=== PATIENT | female | born 1980 | race Caucasian/White ===

== ENCOUNTER 2023-06-20 11:03 | Emergency (ER) | payer OTHER, SELFPAY ==
[2023-06-20] VITALS (23 sets, daily range): BP systolic 137–162; BP diastolic 85–108; PULSE 72–97; RESP 14–27; TEMP 36.7; O2SAT 96–100; BMI 41.6
--- NOTE | 2023-06-20 11:13 | ECG_ITS ---
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
[2023-06-20] MEDS: 0.9 % SODIUM CHLORIDE 1,000 ML 999 ML IV (12:03)
[2023-06-20 12:13] LABS: Basophils Absolute Auto 0.1 10^3/uL (0.0-0.1); Basophils Percent Auto 0.6 % (0.2-2.0); Eosinophils Absolute Auto 0.1 10^3/uL (0.0-0.7); Eosinophils Percent Auto 0.6 % (0.9-7.0); Hematocrit 45.9 % (36.0-48.0); Hemoglobin 15.3 g/dL (12.0-16.0); Immature Granulocytes Abs Auto 0.03 10^3/uL (0.00-0.03); Immature Granulocytes Pct Auto 0.3 % (0.0-0.5); Lymphocytes Absolute Auto 2.7 10^3/uL (1.2-3.8); Lymphocytes Percent Auto 28.7 % (20.5-60.0); Mean Corpuscular HGB Conc 33.3 g/dL (29.9-35.2); Mean Corpuscular Hemoglobin 30.4 pg (26.7-34.0); Mean Corpuscular Volume 91.3 fL (81.0-99.0); Mean Platelet Volume 9.6 fL (9.5-13.5); Monocytes Absolute Auto 0.8 10^3/uL (0.3-0.8); Monocytes Percent Auto 8.4 % (1.7-12.0); Neutrophils Absolute Auto 5.8 10^3/uL (1.4-6.5); Neutrophils Percent Auto 61.4 % (43.0-75.0); Platelet Count 353 10^3/uL (150-450); Red Blood Count 5.03 10^6/uL (4.20-5.40); Red Cell Distribution Width 12.5 % (11.0-15.0); White Blood Count 9.4 10^3/uL (4.0-11.0)
[2023-06-20 12:37] LABS: Alanine Aminotransferase 37 U/L (14-59); Albumin Level 4.2 g/dL (3.4-5.0); Alkaline Phosphatase 80 U/L (46-116); Anion Gap 13.7; Aspartate Amino Transferase 14 U/L (15-37); BUN Creatinine Ratio 20.5; Bilirubin Total 0.3 mg/dL (0.2-1.0); Calcium 9.7 mg/dL (8.5-10.1); Carbon Dioxide 23.5 mmol/L (21.0-32.0); Chloride 102 mmol/L (98-107); Estimated GFR (African America >60 (>=60); Estimated GFR (Non-African Ame >60 (>=60); Globulin 4.1 g/dL; Glucose 92 mg/dL (74-106); Potassium 4.2 mmol/L (3.5-5.1); Sodium 135 mmol/L (136-145); Total Protein 8.3 g/dL (6.4-8.2); Troponin I High Sensitivity <4.0 pg/mL (4.0-51.3)
--- NOTE | 2023-06-20 13:04 | ED_ITS ---
Documented by User: SOFIA Barreto 06/20/23 14:42 HPI - General Adult General Chief complaint: Dizziness Stated complaint: DIZZINESS, BLURRED VISION Time Seen by Provider: 06/20/23 12:59 Source: patient Mode of arrival: walk-in Limitations: no limitations History of Present Illness HPI narrative: patient is a 42-year-old female presents to the emergency department for four day history of headache, dizziness and nausea. She states last she had a two day significant headache over the frontal scalp associated with dizziness that she describes as feeling off balance and spinning. She states she has had blurred vision and difficulty focusing. She has had no loss of vision, peripheral paresthesias. She denies head injury. She does not get frequent headaches and has never been diagnosed with migraines but states when she does get a headache it is not similar to what she has had over the last several days. She has had no fevers, congestion, other upper respiratory symptoms. She is not concerned for . She took [id number] migraine medication without significant improvement. She states the nausea and headache are slightly better today, she is not able to be seen by her doctor. Related Data Previous Rx's Medication Instructions Recorded ketorolac 10 mg tablet 10 mg PO TID PRN pain #10 tabs 06/20/23 meclizine 25 mg chewable tablet 25 mg PO QID PRN dizziness #12 tabs 06/20/23 (Antivert) ondansetron 4 mg disintegrating 4 mg PO Q6H PRN nausea and 06/20/23 tablet vomiting #12 tabs Allergies Allergy/AdvReac Type Severity Reaction Status Date / Time Penicillins AdvReac Intermediate Verified 06/20/23 11:10 Review of Systems ROS Constitutional Denies: fever or chills Eyes Reports: change in vision and blurry vision Ears, nose, mouth, and throat Denies: throat pain Cardiovascular Denies: chest pain Respiratory Denies: shortness of breath or cough Gastrointestinal Reports: nausea Musculoskeletal Denies: back pain Integumentary/Breast Denies: rash Neurological Reports: headache; Denies: numbness in extremities Hematologic/Lymphatic Denies: easy bruising Exam Narrative Exam Narrative: Gen.: Awake, alert, in no distress Head: Normocephalic, atraumatic ENT: Moist mucous membranes; bilateral tympanic membranes clear, no photophobia Respiratory: No respiratory distress, lungs clear bilaterally Cardio: Regular rate and rhythm Extremities: Moves extremities equally, no injuries noted Psych: Normal mood and affect Neuro: No focal neuro deficit Skin: Warm, dry, intact Constitutional Vital Signs, click to edit/add: Last Vital Signs Temp 98.1 F 06/20/23 11:09 Pulse 79 06/20/23 14:40 Resp 24 06/20/23 14:40 BP 140/85 06/20/23 14:31 Pulse Ox 96 06/20/23 13:30 O2 Del Method Room Air 06/20/23 11:09 Course Vital Signs Vital signs: Vital Signs Temperature 98.1 F 06/20/23 11:09 Pulse Rate 87 06/20/23 11:09 Respiratory Rate 18 06/20/23 11:09 Blood Pressure 162/108 H 06/20/23 11:09 Pulse Oximetry 100 06/20/23 11:09 Oxygen Delivery Method Room Air 06/20/23 11:09 Temperature 98.1 F 06/20/23 11:09 Pulse Rate 79 06/20/23 14:40 Respiratory Rate 24 06/20/23 14:40 Blood Pressure 140/85 06/20/23 14:31 Pulse Oximetry 96 06/20/23 13:30 Oxygen Delivery Method Room Air 06/20/23 11:09 Medical Decision Making MDM Narrative Medical decision making narrative: patient was treated with IV fluids, Reglan, Benadryl, Solu-Medrol. She was ambulatory in the emergency department. Her head CT and lab studies do not show any obvious abnormalities. Medical Records Medical records reviewed: Yes I reviewed the patient's medical records Lab Data Lab results reviewed: Yes I reviewed the patient's lab results Labs: Lab Results 06/20/23 06/20/23 Range/Units 12:00 13:45 WBC 9.4 (4.0-11.0) 10^3/uL RBC 5.03 (4.20-5.40) 10^6/uL Hgb 15.3 (12.0-16.0) g/dL Hct 45.9 (36.0-48.0) % MCV 91.3 (81.0-99.0) fL MCH 30.4 (26.7-34.0) pg MCHC 33.3 (29.9-35.2) g/dL RDW 12.5 (11.0-15.0) % Plt Count 353 (150-450) 10^3/uL MPV 9.6 (9.5-13.5) fL Neut % (Auto) 61.4 (43.0-75.0) % Lymph % (Auto) 28.7 (20.5-60.0) % [place] % (Auto) 8.4 (1.7-12.0) % Eos % (Auto) 0.6 L (0.9-7.0) % Baso % (Auto) 0.6 (0.2-2.0) % Neut # (Auto) 5.8 (1.4-6.5) 10^3/uL Lymph # (Auto) 2.7 (1.2-3.8) 10^3/uL [place] # (Auto) 0.8 (0.3-0.8) 10^3/uL Eos # (Auto) 0.1 (0.0-0.7) 10^3/uL Baso # (Auto) 0.1 (0.0-0.1) 10^3/uL Abs Immat Gran (auto) 0.03 (0.00-0.03) 10^3/uL Imm/Tot Granulo (auto) 0.3 (0.0-0.5) % ESR 25 H (<=20) mm/hr Sodium 135 L (136-145) mmol/L Potassium 4.2 (3.5-5.1) mmol/L Chloride 102 (98-107) mmol/L Carbon Dioxide 23.5 (21.0-32.0) mmol/L Anion Gap 13.7 BUN 15.0 (7.0-18.0) mg/dL Creatinine 0.73 (0.55-1.02) mg/dL Est GFR ( Amer) >60 (>=60) Est GFR (Non-Af Amer) >60 (>=60) BUN/Creatinine Ratio 20.5 Glucose 92 (74-106) mg/dL Calcium 9.7 (8.5-10.1) mg/dL Total Bilirubin 0.3 (0.2-1.0) mg/dL AST 14 L (15-37) U/L ALT 37 (14-59) U/L Alkaline Phosphatase 80 (46-116) U/L Troponin I High Sens <4.0 L (4.0-51.3) pg/mL C-Reactive Protein <0.2 (<=1.0) mg/dL Total Protein 8.3 H (6.4-8.2) g/dL Albumin 4.2 (3.4-5.0) g/dL Globulin 4.1 g/dL Albumin/Globulin Ratio 1.0 Urine Opiates Screen Negative (NEGATIVE) Ur Buprenorphine Scrn Negative (NEGATIVE) Ur Oxycodone Screen Negative (NEGATIVE) Urine Methadone Screen Negative (NEGATIVE) Ur Propoxyphene Screen Negative (NEGATIVE) Ur Barbiturates Screen Negative (NEGATIVE) U Tricyclic Antidepress Negative (NEGATIVE) Ur Phencyclidine Scrn Negative (NEGATIVE) Ur Amphetamines Screen Negative (NEGATIVE) U Methamphetamines Scrn Negative (NEGATIVE) U Benzodiazepines Scrn Negative (NEGATIVE) Urine Cocaine Screen Negative (NEGATIVE) U Cannabinoids Screen Negative (NEGATIVE) Imaging Data CT scan - head: Attestation: I have reviewed the pertinent imaging results. Discharge Plan Discharge Chief Complaint: Dizziness Clinical Impression: Dizziness, Headache Patient Disposition: Home, Self-Care Time of Disposition Decision: 14:41 Condition: Good Prescriptions / Home Meds: New ketorolac 10 mg tablet 10 mg PO TID PRN (Reason: pain) Qty: 10 0RF ondansetron 4 mg tablet,disintegrating 4 mg PO Q6H PRN (Reason: nausea and vomiting) Qty: 12 0RF meclizine [Antivert] 25 mg tablet,chewable 25 mg PO QID PRN (Reason: dizziness) Qty: 12 0RF Instructions: Acute Headache (ED), Dizziness (ED) Stand Alone Forms: Portal Instructions Referrals: MILTON WHATLEY [Primary Care Provider] - 1 week Discharge Date/Time: 06/20/23 15:00 Documented by User: Matheus Medel MD 06/20/23 19:34 HPI - General Adult General Chief complaint: Dizziness Stated complaint: DIZZINESS, BLURRED VISION Time Seen by Provider: 06/20/23 12:59 Related Data Previous Rx's Medication Instructions Recorded ketorolac 10 mg tablet 10 mg PO TID PRN pain #10 tabs 06/20/23 meclizine 25 mg chewable tablet 25 mg PO QID PRN dizziness #12 tabs 06/20/23 (Antivert) ondansetron 4 mg disintegrating 4 mg PO Q6H PRN nausea and 06/20/23 tablet vomiting #12 tabs Allergies Allergy/AdvReac Type Severity Reaction Status Date / Time Penicillins AdvReac Intermediate Verified 06/20/23 11:10 Exam Constitutional Vital Signs, click to edit/add: Last Vital Signs Temp 98.1 F 06/20/23 11:09 Pulse 79 06/20/23 14:40 Resp 24 06/20/23 14:40 BP 140/85 06/20/23 14:31 Pulse Ox 96 06/20/23 13:30 O2 Del Method Room Air 06/20/23 11:09 Course Vital Signs Vital signs: Vital Signs Temperature 98.1 F 06/20/23 11:09 Pulse Rate 87 06/20/23 11:09 Respiratory Rate 18 06/20/23 11:09 Blood Pressure 162/108 H 06/20/23 11:09 Pulse Oximetry 100 06/20/23 11:09 Oxygen Delivery Method Room Air 06/20/23 11:09 Temperature 98.1 F 06/20/23 11:09 Pulse Rate 79 06/20/23 14:40 Respiratory Rate 24 06/20/23 14:40 Blood Pressure 140/85 06/20/23 14:31 Pulse Oximetry 96 06/20/23 13:30 Oxygen Delivery Method Room Air 06/20/23 11:09 Medical Decision Making MDM Narrative Medical decision making narrative: patient was treated with IV fluids, Reglan, Benadryl, Solu-Medrol. She was ambulatory in the emergency department. Her head CT and lab studies do not show any obvious abnormalities. I, Dr Medel, have reviewed the above progress note and course of action in the ER; agree with the above. I have personally seen and evaluated this patient, gone over history and physical, and discussed disposition and treatment plan with the patient. Lab Data Labs: Lab Results 06/20/23 06/20/23 Range/Units 12:00 13:45 WBC 9.4 (4.0-11.0) 10^3/uL RBC 5.03 (4.20-5.40) 10^6/uL Hgb 15.3 (12.0-16.0) g/dL Hct 45.9 (36.0-48.0) % MCV 91.3 (81.0-99.0) fL MCH 30.4 (26.7-34.0) pg MCHC 33.3 (29.9-35.2) g/dL RDW 12.5 (11.0-15.0) % Plt Count 353 (150-450) 10^3/uL MPV 9.6 (9.5-13.5) fL Neut % (Auto) 61.4 (43.0-75.0) % Lymph % (Auto) 28.7 (20.5-60.0) % [place] % (Auto) 8.4 (1.7-12.0) % Eos % (Auto) 0.6 L (0.9-7.0) % Baso % (Auto) 0.6 (0.2-2.0) % Neut # (Auto) 5.8 (1.4-6.5) 10^3/uL Lymph # (Auto) 2.7 (1.2-3.8) 10^3/uL [place] # (Auto) 0.8 (0.3-0.8) 10^3/uL Eos # (Auto) 0.1 (0.0-0.7) 10^3/uL Baso # (Auto) 0.1 (0.0-0.1) 10^3/uL Abs Immat Gran (auto) 0.03 (0.00-0.03) 10^3/uL Imm/Tot Granulo (auto) 0.3 (0.0-0.5) % ESR 25 H (<=20) mm/hr Sodium 135 L (136-145) mmol/L Potassium 4.2 (3.5-5.1) mmol/L Chloride 102 (98-107) mmol/L Carbon Dioxide 23.5 (21.0-32.0) mmol/L Anion Gap 13.7 BUN 15.0 (7.0-18.0) mg/dL Creatinine 0.73 (0.55-1.02) mg/dL Est GFR ( Amer) >60 (>=60) Est GFR (Non-Af Amer) >60 (>=60) BUN/Creatinine Ratio 20.5 Glucose 92 (74-106) mg/dL Calcium 9.7 (8.5-10.1) mg/dL Total Bilirubin 0.3 (0.2-1.0) mg/dL AST 14 L (15-37) U/L ALT 37 (14-59) U/L Alkaline Phosphatase 80 (46-116) U/L Troponin I High Sens <4.0 L (4.0-51.3) pg/mL C-Reactive Protein <0.2 (<=1.0) mg/dL Total Protein 8.3 H (6.4-8.2) g/dL Albumin 4.2 (3.4-5.0) g/dL Globulin 4.1 g/dL Albumin/Globulin Ratio 1.0 Urine Opiates Screen Negative (NEGATIVE) Ur Buprenorphine Scrn Negative (NEGATIVE) Ur Oxycodone Screen Negative (NEGATIVE) Urine Methadone Screen Negative (NEGATIVE) Ur Propoxyphene Screen Negative (NEGATIVE) Ur Barbiturates Screen Negative (NEGATIVE) U Tricyclic Antidepress Negative (NEGATIVE) Ur Phencyclidine Scrn Negative (NEGATIVE) Ur Amphetamines Screen Negative (NEGATIVE) U Methamphetamines Scrn Negative (NEGATIVE) U Benzodiazepines Scrn Negative (NEGATIVE) Urine Cocaine Screen Negative (NEGATIVE) U Cannabinoids Screen Negative (NEGATIVE) Discharge Plan Discharge Chief Complaint: Dizziness Clinical Impression: Dizziness, Headache Patient Disposition: Home, Self-Care Time of Disposition Decision: 14:41 Condition: Good Prescriptions / Home Meds: New ketorolac 10 mg tablet 10 mg PO TID PRN (Reason: pain) Qty: 10 0RF ondansetron 4 mg tablet,disintegrating 4 mg PO Q6H PRN (Reason: nausea and vomiting) Qty: 12 0RF meclizine [Antivert] 25 mg tablet,chewable 25 mg PO QID PRN (Reason: dizziness) Qty: 12 0RF Instructions: Acute Headache (ED), Dizziness (ED) Stand Alone Forms: Portal Instructions Referrals: MILTON WHATLEY [Primary Care Provider] - 1 week Discharge Date/Time: 06/20/23 15:00
[2023-06-20] MEDS: METOCLOPRAMIDE HCL 10 MG/2 ML VIAL INJ (13:17)
[2023-06-20] MEDS: METHYLPREDNISOLONE SOD SUCC PF 125 MG/2 ML VIAL IVP (13:17)
[2023-06-20] MEDS: DIPHENHYDRAMINE HCL 50 MG/ML (1ML) VIAL 25 MG IV (13:17)
[2023-06-20 13:32] LABS: C Reactive Protein <0.2 mg/dL (<=1.0)
[2023-06-20 13:48] LABS: Erythrocyte Sedimentation Rate 25 mm/hr (<=20)
--- NOTE | 2023-06-20 13:57 | CT_ITS ---
The [address] [address] Patient Name: SPENCER LIM MRN: [id number] date: 1980 Sex: F Assigned Patient Location: ER Current Patient Location: ER Accession/Order Number: [id number] Exam Date: 06/20/2023 13:55 Report Date: 06/20/2023 14:14 At the request of: CHERELLE LAUREANO Procedure: CT head/brain wo con CT head/brain wo con, 06/20/2023 1:55 PM EDT INDICATION: Headache, dizziness COMPARISON: There is no appropriate prior study for comparison. TECHNIQUE: Axial CT images of the brain from skull base to vertex, including portions of the face and sinuses, were obtained without contrast . Multiplanar reformatted images were generated and reviewed as needed. Dose reduction techniques were achieved by using automated exposure control and/or adjustment of mA and/or kV according to patient size and/or use of iterative reconstruction technique. FINDINGS: The cerebral sulci as well as ventricular system are appropriate for age. There is no intracranial mass, mass effect, midline shift, intra or extra-axial fluid collection or hemorrhage. The visualized portions of orbits, mastoid air cells as well as paranasal sinuses are unremarkable. There is no suspicious osteolytic or osteoblastic lesion. CT/CT head/brain wo con IMPRESSION: No acute intracranial process is noted. Electronically authenticated by: SHAYLA SUN Date: 06/20/2023 14:14
[2023-06-20 14:12] LABS: Amphetamine Screen Urine NEGATIVE (NEGATIVE); Benzodiazepines Screen Urine NEGATIVE (NEGATIVE); Cannabinoid Screen Urine NEGATIVE (NEGATIVE); Cocaine Screen Urine NEGATIVE (NEGATIVE); Methadone Screen Urine NEGATIVE (NEGATIVE); Methamphetamines Screen Urine NEGATIVE (NEGATIVE); Opiate Screen Urine NEGATIVE (NEGATIVE); Phencyclidine Screen Urine NEGATIVE (NEGATIVE); Tricyclic Antidepressant Urine NEGATIVE (NEGATIVE)
[2023-06-20 14:13] LABS: Barbiturates Screen Urine NEGATIVE (NEGATIVE); Buprenorphine Screen Urine NEGATIVE (NEGATIVE); Oxycodone Screen Urine NEGATIVE (NEGATIVE)
== END 2023-06-20 15:00 | disposition home or self-care (01) ==
PROVIDERS: Physician Assistant; Emergency Provider Emergency Medicine; PCP Family Medicine
DX: R51.9 Headache, unspecified (principal); R42 Dizziness and giddiness
CPT/HCPCS: 36415; 70450; 80053; 80307; 84484; 85025; 85652; 86140; 93005; 96372; 96374; 96375; 99285; J2930

== ENCOUNTER 2023-12-26 20:06 | Outpatient (REF) | payer OTHER, SELFPAY ==
[2023-12-30 13:11] LABS: Age Gdln ACOG Testing Note (.); HPV Aptima Negative (Negative); IGP, Aptima HPV, rfx 16/18,45 Note (.)
== END 2023-12-26 20:07 | disposition home or self-care (01) ==
LOC: LAB 20:06
PROVIDERS: PCP Family Medicine; Visit Provider Obstetrics & Gynecology
DX: Z01.419 Encounter for gynecological examination (general) (routine) without abnormal findings (principal)
CPT/HCPCS: 87624; G0145

== ENCOUNTER 2024-01-23 12:03 | Outpatient (REF) | payer OTHER, SELFPAY ==
--- OUTSIDE RECORDS SUMMARY | 2024-01-26 12:14 | XMS_ITS | CCD ---
Author Organization [facility] Care Team Providers [facility] Manager Name Role Phone Arabella Duong Primary Care Provider RAHUL CAIN Referring Unavailable ARABELLA DUONG Primary Care Unavailable ARABELLA DUONG Primary Care Unavailable JESSICA ALFARO Attending Unavailable BECKI SHIELDS Attending Unavailable MD Arabella Duong Primary Care Provider Becki Shields Attending Provider [phone] Arabella Duong Primary Care Unavailable Becki Shields Attending Unavailable Becki Shields Admitting Unavailable Allergies Allergy Classification Reported Allergen(s) Allergy Type Date of Onset Reaction(s) Facility (1 source) Penicillins Propensity to adverse reactions to drug 01-31-2020 [place], [place] Medications Current Medications Medication Drug Class(es) Dates Sig (Normalized) Sig (Original) benzonatate 100 mg oral capsule (1 source) Non-narcotic Antitussive take 1 capsule by mouth three times daily as needed for cough benzonatate (TESSALON) 100 MG capsule Take 100 mg by mouth 3 times daily as needed for Cough 0 Active ciprofloxacin 3 mg/ml / dexamethasone 1 mg/ml otic suspension (1 source) Corticosteroid, Quinolone Antimicrobial Start: 01-31-2020 End: 02-07-2020 ciprofloxacin-de xamethasone (CIPRODEX) 0.3-0.1 % otic suspension Indications: Recurrent acute suppurative otitis media of right ear with spontaneous rupture of tympanic membrane Place 4 drops into both ears 2 times daily for 7 days 1 Bottle 0 01/31/2020 02/07/2020 Active clindamycin 300 mg oral capsule (1 source) Lincosamide Antibacterial Start: 01-31-2020 End: 02-07-2020 take 1 capsule by mouth three times daily clindamycin (CLEOCIN) 300 MG capsule Indications: Recurrent acute suppurative otitis media of right ear with spontaneous rupture of tympanic membrane , Recurrent acute serous otitis media of left ear Take 1 capsule by mouth 3 times daily for 7 days 21 capsule 0 01/31/2020 02/07/2020 Active Ethinyl Estradiol / Levonorgestrel (1 source) Progestin, Estrogen, Progestin-containing Intrauterine Device Levonorg-Eth Estrad Triphasic (ENPRESSE-28) 50-30/75-40/ 125-30 MCG TABS Take by mouth 0 Active famotidine 10 mg oral tablet (1 source) Histamine-2 Receptor Antagonist take 1 tablet by mouth twice daily famotidine (PEPCID) 10 MG tablet Take 10 mg by mouth 2 times daily 0 Active fluticasone propionate 0.05 mg/actuat metered dose nasal spray (1 source) Corticosteroid take 1 spray(s) nasal route once daily fluticasone (FLONASE) 50 MCG/ACT nasal spray 1 spray by Each Nostril route daily 0 Active guaiFENesin (1 source) guaiFENesin (MUCUS RELIEF ADULT PO) Take by mouth 0 Active Problems Problem Classification Problem Date Documented Da te Episodic/Chronic Malaise and fatigue (1 source) Fatigue; Translations: [Fatigue, unspecified type] Episodic Other ear and sense organ disorders (1 source) Decreased hearing ; Translations: [Decreased hearing of both ears] Chronic Otitis media and related conditions (1 source) Recurrent acute suppurative otitis media with spontaneous rupture of ear drum; Translations: [Recurrent acute suppurative otitis media of right ear with spontaneous rupture of tympanic membrane] Episodic Results Test Name Value Interpretation Reference Range Facility [facility] 01-23-2024 L Specimen: [id number] Received: 01/24/24 Status: DARIA Carlton Num: [id number] Spec Type: Surgical Subm Dr: Becki Shields Tissues: A Endometrium - Biopsy (ENDOM BX) Procedures: HE/2, Gross/Micro L4 Age/ Patient Sex Location Account Attending Physician Alia Parham 43/F LABELL [id number] Becki Shields SPEC NUM: [id number] RECD: 01/24/24 STATUS: DARIA CARLTON NUM: [id number] ALISHA: 01/23/24- SUBM DR: Becki Shields ENTERED: 01/24/24 [facility] DR: Leighton Strong SPEC TYPE: Surgical DEPT: JANNA ADAMS ENTERED BY: [id number] RECV BY: [id number] ORDERED: HE/2, Gross/Micro L4 ORDERED: HE/2, Gross/Micro L4 Pathological Diagnosis Endometrium, biopsy: Fragments of benign endometrium with changes consistent with exogenous hormonal therapy. Gross Description The specimen is received in formalin, labeled with the patient's name and EM BX , consisting of an aggregate of hemorrhagic material and mucus altogether measuring 2.5 x 2.1 x 0.3 cm, entirely submitted in A1. TW Clinical history: GERD rule out H. pylori CPT Codes 67994 Specimen: [id number] Received: 01/24/24 Status: DARIA Carlton Num: [id number] Spec Type: Surgical Subm Dr: Becki Shields Tissues: A Endometrium - Biopsy (ENDOM BX) Procedures: HE/2, Gross/Micro L4 Patient: Alia Parham [id number] (Continued) Signed (signature on file) Hyacinth Garcia MD 01/25/24 1356 Normal [facility] Consent Formson 08-09-2023 Consent Forms [id number] #1.00OTGTIFF Normal [facility] CMP Standardon 08-03-2023 eGFR Non AA >60 Invalid Interpretation Code [facility] Comment on above: Performed By: #### 1 [id number], 5952074, [id number], 6213095, 7077099, 5545444, 8171874 #### [facility] (DEFAULT) [address] [place] [address] eGFR AA >60 Invalid Interpretation Code [facility] Comment on above: Performed By: #### 1 [id number], 9987697, [id number], 9440085, 4554078, 8231785, 8371559 #### [facility] (DEFAULT) [address] [place] [address] Albumin [Mass/Vol] 4.2 g/dL Normal 3.5-5.0 [facility] Comment on above: Performed By: #### 1 [id number], 4885791, [id number], 6191144, 0956753, 2186559, 0606222 #### [facility] (DEFAULT) [address] [place] [address] Alk Phos 70 IU/L Normal 32-91 [facility] Comment on above: Performed By: #### 1 [id number], 4604822, [id number], 4743913, 4905293, 2926452, 1046715 #### [facility] (DEFAULT) [address] [place] [address] 99117 ALT [Catalytic activity/Vol] 20.0 U/L Normal 14.0-54.0 [facility] Comment on above: Performed By: #### 1 [id number], 6733752, 7370172806, 2654324, 5163619, 0143526, 8537712 #### [facility] (DEFAULT) [address] [place] [address] 21165 AST [Catalytic activity/Vol] 18 U/L Normal 15-41 [facility] Comment on above: Performed By: #### 1 [id number], 8448673, 1154602743, 3503245, 0040517, 5882345, 0291399 #### [facility] (DEFAULT) [address] [place] [address] 51332 Bili Total 0.5 mg/dL Normal 0.3-1.2 [facility] Comment on above: Performed By: #### 1 [id number], 6113241, 3563374336, 0390624, 0134728, 9507186, 3986456 #### [facility] (DEFAULT) [address] [place] [address] 54348 Calcium [Mass/Vol] 8.8 mg/dL Low 8.9-10.3 [facility] Comment on above: Performed By: #### 1 [id number], 2541183, 5037857543, 0421383, 4007664, 0947876, 1500345 #### [facility] (DEFAULT) [address] [place] [address] 30478 Chloride [Moles/Vol] 104 mmol/L Normal 101-111 [facility] Comment on above: Performed By: #### 1 [id number], 4314332, 0858448623, 2552150, 6542519, 2537990, 5231156 #### [facility] (DEFAULT) [address] [place] [address] 98228 CO2 [Moles/Vol] 26 mmol/L Normal 21-32 [facility] Comment on above: Performed By: #### 1 [id number], 6812443, 2191373756, 7567051, 3805032, 9160883, 2132265 #### [facility] (DEFAULT) [address] [place] [address] 17861 Creatinine [Mass/Vol] 0.69 mg/dL Normal 0.60-1.30 [facility] Comment on above: Performed By: #### 1 [id number], 1093841, 9258056671, 5782691, 8616398, 0966028, 5685005 #### [facility] (DEFAULT) [address] [place] [address] 70838 Glucose [Mass/Vol] 90.0 mg/dL Normal 74.0-118.0 [facility] Comment on above: Performed By: #### 1 [id number], 2080864, 7026340611, 2886324, 1359403, 5751582, 7276683 #### [facility] (DEFAULT) [address] [place] [address] 64951 Potassium [Moles/Vol] 3.6 mmol/L Normal 3.6-5.1 [facility] Comment on above: Performed By: #### 1 668908475, 6594659, 8526892016, 5058831, 5482164, 4964192, 1302265 #### [facility] (DEFAULT) [address] [place] [address] 19053 Protein [Mass/Vol] 7.7 g/dL Normal 6.5-8.1 [facility] Comment on above: Performed By: #### 1 [id number], 8048743, 2483738721, 3649926, 1627479, 9885159, 6722737 #### [facility] (DEFAULT) [address] [place] [address] 85954 Sodium [Moles/Vol] 137.0 mmol/L Normal 136.0-144.0 [facility] Comment on above: Performed By: #### 1 [id number], 9338858, 3534370899, 9628632, 1738313, 5126812, 5445475 #### [facility] (DEFAULT) [address] [place] [address] 08486 Urea nitrogen [Mass/Vol] 15 mg/dL Normal 8-26 [facility] Comment on above: Performed By: #### 1 680545129, 5091890, 1649554864, 3053085, 8225214, 2141904, 4513544 #### [facility] (DEFAULT) [address] [place] [address] 11148 Albumin/Globulin [Mass ratio] 1.2 {ratio} Low 1.4-2.6 [facility] Comment on above: Performed By: #### 1 [id number], 4311262, 6985756116, 2754759, 8277472, 2297625, 7739894 #### [facility] (DEFAULT) [address] [place] [address] 92992 Anion gap [Moles/Vol] 10.6 mmol/L Normal 5.0-19.0 [facility] Comment on above: Performed By: #### 1 255367234, 3136078, 9222096388, 0726715, 1672471, 7147583, 3722439 #### [facility] (DEFAULT) [address] [place] [address] 57141 Globulin (S) [Mass/Vol] 3.5 g/dL Normal 1.5-4.3 [facility] Comment on above: Performed By: #### 1 957457933, 8567591, 5826228329, 1428756, 1384113, 1191716, 5439800 #### [facility] (DEFAULT) [address] [place] [address] 51940 Osmolality 274 mOsm/L Invalid Interpretation Code [facility] Comment on above: Performed By: #### 1 407452740, 2928732, 7840486610, 2551280, 1769702, 7396170, 4946046 #### [facility] (DEFAULT) [address] [place] [address] 44668 Urea nitrogen/Creatinin e [Mass ratio] 21.7 mg/mg High 4.6-16.2 [facility] Comment on above: Performed By: #### 1 280871549, 9435299, 3850393216, 9779454, 1558675, 0595123, 3471594 #### [facility] (DEFAULT) [address] [place] [address] 97931 GGTon 08-03-2023 Gamma glutamyl transferase [Catalytic activity/Vol] 16.0 U/L Normal 7.0-50.0 [facility] Comment on above: Performed By: #### 1 305620496, 3670885, 1959466682, 9421752, 3575983, 0945925, 6865850 #### [facility] (DEFAULT) [address] [place] [address] 97863 Iron Levelon 08-03-2023 Iron [Mass/Vol] 101.0 ug/dL Normal 28.0-170.0 [facility] Comment on above: Performed By: #### 1 551631453, 0433312, 8039244930, 2172820, 8692331, 7815686, 9394045 #### [facility] (DEFAULT) [address] [place] [address] 79750 LDHon 08-03-2023 LDH 152.0 IU/L Normal 98.0-192.0 [facility] Comment on above: Performed By: #### 1 761748884, 6640398, 5899913534, 3982263, 4444552, 8048418, 7280398 #### [facility] (DEFAULT) [address] [place] [address] 64742 Lipid Panel Standardon 08-03 Cholesterol [Mass/Vol] 195.0 mg/dL Normal 66.0-200.0 [facility] Comment on above: Performed By: #### 1 [id number], 8846180, 6363858507, 7453811, 6330695, 5756721, 2359150 #### [facility] (DEFAULT) [address] [place] [address] 58442 Cholesterol in HDL [Mass/Vol] 40 mg/dL Normal 40-71 [facility] Comment on above: Performed By: #### 1 299053953, 4426612, 8296572213, 4270313, 3064348, 1572872, 6478444 #### [facility] (DEFAULT) [address] [place] [address] 49494 Triglyceride [Mass/Vol] 70.0 mg/dL Normal 0.0-150.0 [facility] Comment on above: Performed By: #### 1 938156025, 3263494, 9236889664, 1402982, 7939396, 1537664, 6249787 #### [facility] (DEFAULT) [address] [place] [address] 64451 Cholesterol in LDL [Mass/Vol] 141 mg/dL High 1-100 [facility] Comment on above: Performed By: #### 1 [id number], 8093310, 4499288640, 6587704, 2094391, 0417657, 4106596 #### [facility] (DEFAULT) [address] [place] [address] 10165 Cholesterol.total/ Cholesterol in HDL [Mass ratio] 4.8 {ratio} High 0.0-4.5 [facility] Comment on above: Performed By: #### 1 [id number], 7823159, 4888622660, 5100707, 4588001, 3008837, 5359783 #### [facility] (DEFAULT) [address] [place] [address] 51354 VLDL. 14 mg/dL Normal 5-40 [facility] Comment on above: Performed By: #### 1 886661190, 8477155, 9631581780, 1458902, 7265465, 2384642, 9956723 #### [facility] (DEFAULT) [address] [place] [address] 96916 Phoson 08-03-2023 Phosphate [Mass/Vol] 3.0 mg/dL Normal 2.5-4.6 [facility] Comment on above: Performed By: #### 1 [id number], 4689375, 6086665532, 9539786, 0417982, 6929618, 7009982 #### [facility] (DEFAULT) [address] [place] [address] 58867 Uric Acidon 08-03-2023 Urate [Mass/Vol] 4.7 mg/dL Normal 2.6-8.0 [facility] Comment on above: Performed By: #### 1 [id number], 6368604, 2718849839, 0951354, 4951788, 4280562, 3402919 #### [facility] (DEFAULT) [address] [place] [address] [id number] 02-03-2020 SARS-CoV-2 Not Detected Normal Not Detected [facility] Comment on above: Result Comment: (NOT E) This test was developed and its performance characteristics determined by [facility]. This test has not been FDA cleared or approved. This test has been authorized by FDA under an Emergency Use Authorization (EUA). This test has been validated in accordance with the FDA's Guidance Document (Policy for Diagnostics Testing in Laboratories Certified to Perform High Complexity Testing under CLIA prior to Emergency Use Authorization for Coronavirus Disease-2019 during the Public Health Emergency) issued on December 08, 2019. FDA independent review of this validation is pending. This test is only authorized for the duration of time the declaration that circumstances exist justifying the authorization of the emergency use of in vitro diagnostic tests for detection of SARS-CoV- 2 virus and/or diagnosis of COVID-19 infection under section 564(b)(1) of the Act, 21 U.S.C. 360bbb-3(b)(1), unless the authorization is terminated or revoked sooner. Performed At: [facility] [address] [facility] [place] [id number] Laurent Pollock MD Ph:[phone] Performed By: #### A COV #### [facility] [address] [place] [address] [employer] Team Leader: Philippe Pimentel MD Encounters Encounter Date Encounter Type Care Provider Facility Start: 01-24-2024 End: 01-24-2024 ambulatory Arabella Duong Facility:[facility] Start: 01-24-2024 End: 01-24-2024 ambulatory MD Arabella Duong Work Phone: [facility] Work Phone: Start: 01-24-2024 End: 01-24-2024 Departed Referred MD Arabella Duong Work Phone: [facility] Start: 01-23-2024 End: 01-23-2024 ambulatory BECKI SHIELDS Not Available Start: 12-26-2023 End: 12-26-2023 ambulatory JESSICA ALFARO Not Available Start: 08-03-2023 End: 08-04-2023 ambulatory ARABELLA DUONG Facility:[facility] Start: 01-31-2020 End: 02-01-2020 Patient encounter procedure RAHUL CAIN [facility] Start: 01-31-2020 End: 01-31-2020 Subsequent hospital visit by physician Arabella [place] [facility] Comment on above: Fatigue, unspecified type; Recurrent acute suppurative otitis media of right ear with spontaneous rupture of tympanic membrane; Decreased hearing of both ears Procedures Date Procedure Procedure Detail Performing Clinician Start: 01-31-2020 COVID-19 AMBULATORY RANDEE CAIN Plan of Treatment Date Care Activity Detail Author Start: 06-10-2020 Influenza vaccination Flu vacc ine (Season Ended) [place], [place] Start: 2001 Screening for malign ant neoplasm of cervix Cervical cancer screen [place], [place] Start: 1999 DTaP/Tdap/Td vaccine (1 - Tdap) DTaP/Tdap/Td vaccine (1 - Tdap) [place], [place] Start: 1995 HIV screening HIV screen [place], [place] Start: 1981 Varicella vaccine (1 of 2 - 2-dose childhood series) Varicella vaccine (1 of 2 - 2-dose childhood series) [place], [place] End: 01-31-2020 COVID-19 Ambulatory COVID-19 Ambulatory Lab Routine Fatigue, unspecified type Recurrent acute suppurative otitis media of right ear with spontaneous rupture of tympanic membrane Decreased hearing of both ears 1 Occurrences starting 01/31/2020 until 01/31/2020 [place] Comment on above: 1 Occurrences starti ng 01/31/2020 until 01/31/2020 COVID-19 Ambulatory COVID-19 Amb ulatory Lab Routine Fatigue, unspecified type Recurrent acute suppurative otitis media of right ear with spontaneous rupture of tympanic membrane Decreased hearing of both ears 01/31/2020 6:43 PM EDT [place] Payers Date Payer Category Payer Self-pay 2022 Private Health Insurance [id number] 2019 Unknown [employer] [address] xxxxxxxxxxxx 2019-Present [phone] [address] [place] [address] xxxxxxxxxxxx [id number] 2019 Unknown [id number] 1980 Unknown [id number] 1980 Unknown [id number] 1980 Unknown [id number] Social History Date Type Detail Facility Start: 01-31-2020 Tobacco smoking status [place] Sex Assigned At Not on file [place], [place] Start: 1980 Sex Assigned At Female F [facility] Evaluation note Note Date & Type Note Facility Evaluation note No assessment information availa [facility] Work Phone: Assessments Diagnosis Fatigue, unspecified type Recurrent acute suppurative otitis media of right ear with spontaneous rupture of tympanic membrane Decreased hearing of both ears Advance Directives No Advanced Directives Records FoundDocuments on File Type Date Recorded Patient Process Designer Expl anation Advance Directives and Living Will Power of Nursery Helper Summary Purpose Family History No Family History Records FoundNo Family History Records FoundNo Family History Records FoundNo Family History Records Found Additional Source Comments INFORMATION SOURCE (unrecogn ized section and content) DATE CREATED AUTHOR 02/03/2020 [facility] DATE CREATED AUTHOR AUTHOR'S ORGANIZ ATION 08/10/2023 [facility] DATE CREATED AUTHOR AUTHOR'S ORGANIZ ATION 01/24/2024 [facility] EPIC DATE CREATED AUTHOR AUTHOR'S ORGANIZ ATION 01/25/2024 [facility] Care Teams (unrecognized sec tion and content) Team Status: Active Member Role Status Dates Arabella Duong MD Primary Care Provider Active Team Status: Inactive Member Role Status Dates Arabella Duong MD Primary Care Provider Active Start: January 24, 2024 End: January 24, 2024 Becki Shields Attending Provider Active Start: 2023 End: January 24, 2024 Goals (unrecognized section and content) Goals may be documented in a n alternate section FOR RECORDS PERTAINING TO PATIENTS WHO ARE OR HAVE BEEN ENROLLED IN A CHEMICAL DEPENDENCY/SUBSTANCEABUSE PROGRAM, SOME INFORMATION MAY BE OMITTED. This clinical summary was aggregated from multiple sources. Caution should be exercised in using it in the provision of clinical care. This summary normalizes information from multiple sources, and as a consequence, information in this document may materially change the coding, format and clinical context of patient data. In addition, data may be omitted in some cases. CLINICAL DECISIONS SHOULD BE BASED ON THE PRIMARY CLINICAL RECORDS. [facility] [employer] [facility]. provides no warranty or guarantee of the accuracy or completeness of information in this document.
== END 2024-01-23 12:04 ==
LOC: LAB 12:03
PROVIDERS: PCP Family Medicine; Visit Provider Obstetrics & Gynecology
DX: N92.0 Excessive and frequent menstruation with regular cycle (principal); R10.9 Unspecified abdominal pain; N93.9 Abnormal uterine and vaginal bleeding, unspecified
CPT/HCPCS: 88305

== ENCOUNTER 2024-02-09 13:13 | Outpatient (OUT) | payer OTHER, SELFPAY | END 2024-02-09 13:14 | disposition home or self-care (01) | PROVIDERS: PCP Family Medicine; Visit Provider Obstetrics & Gynecology | DX: Z01.818 Encounter for other preprocedural examination (principal); Z30.2 Encounter for sterilization; N92.0 Excessive and frequent menstruation with regular cycle; N93.9 Abnormal uterine and vaginal bleeding, unspecified; R10.2 Pelvic and perineal pain ==

== ENCOUNTER 2024-02-17 06:12 | Day surgery (SDC) | payer OTHER, SELFPAY ==
[2024-02-09 14:05] VITALS: BP 112/84; PULSE 110; TEMP 36.2; O2SAT 99; BMI 46.1
[2024-02-17] VITALS (9 sets, daily range): BP systolic 110–145; BP diastolic 70–95; PULSE 69–99; TEMP 36.2–36.4; O2SAT 96–100; BMI 46.1
--- OUTSIDE RECORDS SUMMARY | 2024-02-17 06:15 | XMS_ITS | CCD ---
Author Organization [facility] Care Team Providers Care Skin Carver Name Role Phone Arabella Duong Primary Care Provider RAHUL CAIN Referring Unavailable ARABELLA DUONG Primary Care Unavailable ARABELLA DUONG Primary Care Unavailable JESSICA ALFARO Attending Unavailable BECKI SHIELDS Attending Unavailable MD Arabella Duong Primary Care Provider [phone] Becki Shields Attending Provider Arabella Duong Primary Care Unavailable Becki Shields Attending Unavailable Becki Shields Admitting Unavailable Allergies Allergy Classification Reported Allergen(s) Allergy Type Date of Onset Reaction(s) Facility (1 source) Penicillins Propensity to adverse reactions to drug 01-31-2020 [place] Medications Current Medications Medication Drug Class(es) [...] Test Name Value Interpretation Reference Range Facility [facility] 01-23-2024 L Specimen: [id number] Received: 01/24/24 Status: DARIA Carlton Num: [id number] Spec Type: Surgical Subm Dr: Becki Shields Tissues: A Endometrium - Biopsy (ENDOM BX) Procedures: HE/2, Gross/Micro L4 Age/ Patient Sex Location Account Attending Physician Alia Parham 43/F [place] [id number] Becki Shields SPEC NUM: [id number] RECD: 01/24/24 STATUS: DARIA CARLTON NUM: [id number] ALISHA: 01/23/24- SUBM DR: Becki Shields ENTERED: 01/24/24 [facility] DR: Leighton Strong SPEC TYPE: Surgical DEPT: JANNA ADAMS ENTERED BY: [id number] RECV BY: [id number] ORDERED: HE/2, Gross/Micro L4 ORDERED: HE/2, Gross/Micro [...] GERD rule out H. pylori CPT Codes 65422 Specimen: [id number] Received: 01/24/24 Status: DARIA Carlton Num: [id number] Spec Type: Surgical Subm Dr: Becki Shields Tissues: A Endometrium - Biopsy (ENDOM BX) Procedures: HE/2, Gross/Micro L4 Patient: Alia Parham [id number] (Continued) Signed (signature on file) Hyacinth Garcia MD 01/25/24 1356 Normal [facility] Consent Formson 08-09-2023 Consent Forms [id number] #[id number] Normal [facility] CMP Standardon 08-03-2023 eGFR Non AA >60 Invalid Interpretation Code [facility] Comment on above: Performed By: #### 1 [id number], 5315545, [id number], 9951920, 6808495, 8501191, 5301724 #### [facility] (DEFAULT) [address] [place] [address] eGFR AA >60 Invalid Interpretation Code [facility] Comment on above: Performed By: #### 1 [id number], 8455601, [id number], 2511528, 6189561, 2383037, 0684012 #### [facility] (DEFAULT) [address] [place] [address] Albumin [Mass/Vol] 4.2 g/dL Normal 3.5-5.0 [facility] Comment on above: Performed By: #### 1 [id number], 5399482, 5890869145, 4259295, 2804362, 9723682, 7452654 #### [facility] (DEFAULT) [address] [place] [address] Alk Phos 70 IU/L Normal 32-91 [facility] Comment on above: Performed By: #### 1 [id number], 1751965, 5383802128, 2105313, 2107672, 3552728, 0483279 #### [facility] (DEFAULT) [address] [place] [address] 33251 ALT [Catalytic activity/Vol] 20.0 U/L Normal 14.0-54.0 [facility] Comment on above: Performed By: #### 1 [id number], 5244719, 2483273307, 5403537, 7349973, 6601673, 5356703 #### [facility] (DEFAULT) [address] [place] [address] 39232 AST [Catalytic activity/Vol] 18 U/L Normal 15-41 [facility] Comment on above: Performed By: #### 1 [id number], 3233277, 2361297355, 3957576, 0148292, 5697461, 3235206 #### [facility] (DEFAULT) [address] [place] [address] 30361 Bili Total 0.5 mg/dL Normal 0.3-1.2 [facility] Comment on above: Performed By: #### 1 [id number], 5453367, 0555223835, 7769646, 6628385, 1066176, 0050483 #### [facility] (DEFAULT) [address] [place] [address] 01951 Calcium [Mass/Vol] 8.8 mg/dL Low 8.9-10.3 [facility] Comment on above: Performed By: #### 1 [id number], 1353566, 8961120398, 6399464, 2113895, 7515792, 4279096 #### [facility] (DEFAULT) [address] [place] [address] 36126 Chloride [Moles/Vol] 104 mmol/L Normal 101-111 [facility] Comment on above: Performed By: #### 1 [id number], 4905601, 7612280763, 1563116, 4953059, 4832810, 2487363 #### [facility] (DEFAULT) [address] [place] [address] 50455 CO2 [Moles/Vol] 26 mmol/L Normal 21-32 [facility] Comment on above: Performed By: #### 1 [id number], 0059273, 3405942672, 1046395, 5261476, 6432788, 0226026 #### [facility] (DEFAULT) [address] [place] [address] 55257 Creatinine [Mass/Vol] 0.69 mg/dL Normal 0.60-1.30 [facility] Comment on above: Performed By: #### 1 [id number], 5178210, 2233694300, 0790777, 2816632, 7037842, 0767519 #### [facility] (DEFAULT) [address] [place] [address] 11394 Glucose [Mass/Vol] 90.0 mg/dL Normal 74.0-118.0 [facility] Comment on above: Performed By: #### 1 [id number], 9845429, 0103852837, 0663387, 4229420, 4846731, 4227774 #### [facility] (DEFAULT) [address] [place] [address] 70667 Potassium [Moles/Vol] 3.6 mmol/L Normal 3.6-5.1 [facility] Comment on above: Performed By: #### 1 [id number], 7529414, 8119099373, 5545325, 8804086, 6037108, 7805080 #### [facility] (DEFAULT) [address] [place] [address] 53457 Protein [Mass/Vol] 7.7 g/dL Normal 6.5-8.1 [facility] Comment on above: Performed By: #### 1 [id number], 1854233, 1132670202, 9906394, 9793186, 1564919, 9251075 #### [facility] (DEFAULT) [address] [place] [address] 06253 Sodium [Moles/Vol] 137.0 mmol/L Normal 136.0-144.0 [facility] Comment on above: Performed By: #### 1 [id number], 7322927, 8966217042, 0633122, 9222049, 2292998, 3008181 #### [facility] (DEFAULT) [address] [place] [address] 10426 Urea nitrogen [Mass/Vol] 15 mg/dL Normal 8-26 [facility] Comment on above: Performed By: #### 1 764152915, 2397098, 1668631687, 9388452, 5091212, 3115138, 8612068 #### [facility] (DEFAULT) [address] [place] [address] 36100 Albumin/Globulin [Mass ratio] 1.2 {ratio} Low 1.4-2.6 [facility] Comment on above: Performed By: #### 1 875186457, 4192765, 8592820927, 6214694, 0710878, 6993813, 4707647 #### [facility] (DEFAULT) [address] [place] [address] 79238 Anion gap [Moles/Vol] 10.6 mmol/L Normal 5.0-19.0 [facility] Comment on above: Performed By: #### 1 614059518, 1210412, 6749219242, 0140335, 8112309, 6766109, 5709498 #### [facility] (DEFAULT) [address] [place] [address] 10751 Globulin (S) [Mass/Vol] 3.5 g/dL Normal 1.5-4.3 [facility] Comment on above: Performed By: #### 1 [id number], 9772079, 8200278059, 6931969, 5398449, 5864606, 3542188 #### [facility] (DEFAULT) [address] [place] [address] 84800 Osmolality 274 mOsm/L Invalid Interpretation Code [facility] Comment on above: Performed By: #### 1 [id number], 3011762, 1663986031, 9570901, 2488124, 1519581, 4251725 #### [facility] (DEFAULT) [address] [place] [address] 85984 Urea nitrogen/Creatinin e [Mass ratio] 21.7 mg/mg High 4.6-16.2 [facility] Comment on above: Performed By: #### 1 [id number], 5635067, 6256478685, 7397934, 3098863, 3565949, 2471590 #### [facility] (DEFAULT) [address] [place] [address] 46142 GGTon 08-03-2023 Gamma glutamyl transferase [Catalytic activity/Vol] 16.0 U/L Normal 7.0-50.0 [facility] Comment on above: Performed By: #### 1 [id number], 9266228, 7176597956, 2381441, 3120415, 7915491, 2543334 #### [facility] (DEFAULT) [address] [place] [address] 62543 Iron Levelon 08-03-2023 Iron [Mass/Vol] 101.0 ug/dL Normal 28.0-170.0 [facility] Comment on above: Performed By: #### 1 [id number], 7743573, 7802575311, 0436352, 8553104, 9831168, 3338957 #### [facility] (DEFAULT) [address] [place] [address] 73153 LDHon 08-03-2023 LDH 152.0 IU/L Normal 98.0-192.0 [facility] Comment on above: Performed By: #### 1 [id number], 1416231, 3692228096, 4432242, 2571091, 2011827, 9254865 #### [facility] (DEFAULT) [address] [place] [address] 96793 Lipid Panel Standardon 08-03 Cholesterol [Mass/Vol] 195.0 mg/dL Normal 66.0-200.0 [facility] Comment on above: Performed By: #### 1 [id number], 3340235, 7453713208, 0828253, 1932425, 8495997, 7169410 #### [facility] (DEFAULT) [address] [place] [address] 97894 Cholesterol in HDL [Mass/Vol] 40 mg/dL Normal 40-71 [facility] Comment on above: Performed By: #### 1 [id number], 7991961, 8263777640, 7404211, 5523599, 6387135, 1412297 #### [facility] (DEFAULT) [address] [place] [address] 26765 Triglyceride [Mass/Vol] 70.0 mg/dL Normal 0.0-150.0 [facility] Comment on above: Performed By: #### 1 173991546, 0063959, 4346972168, 5499220, 9367186, 6722046, 9418293 #### [facility] (DEFAULT) [address] [place] [address] 06263 Cholesterol in LDL [Mass/Vol] 141 mg/dL High 1-100 [facility] Comment on above: Performed By: #### 1 071408964, 2260770, 2966912028, 0845318, 3933355, 9430202, 9366574 #### [facility] (DEFAULT) [address] [place] [address] 58470 Cholesterol.total/ Cholesterol in HDL [Mass ratio] 4.8 {ratio} High 0.0-4.5 [facility] Comment on above: Performed By: #### 1 409439549, 8328103, 1609606123, 5028760, 4451475, 3827818, 6709020 #### [facility] (DEFAULT) [address] [place] [address] 48740 VLDL. 14 mg/dL Normal 5-40 [facility] Comment on above: Performed By: #### 1 795600061, 1622166, 9087480974, 1895082, 6957923, 5150153, 8818237 #### [facility] (DEFAULT) [address] [place] [address] 13281 Phoson 08-03-2023 Phosphate [Mass/Vol] 3.0 mg/dL Normal 2.5-4.6 [facility] Comment on above: Performed By: #### 1 [id number], 1422637, 9155715744, 2457981, 9238722, 4520535, 2959661 #### [facility] (DEFAULT) [address] [place] [address] 10165 Uric Acidon 08-03-2023 Urate [Mass/Vol] 4.7 mg/dL Normal 2.6-8.0 [facility] Comment on above: Performed By: #### 1 [id number], 2706525, 0390969445, 1608650, 1270820, 4485978, 6789050 #### [facility] (DEFAULT) [address] [place] [address] SNEN-IrD-8lm 02-03-2020 SARS-CoV-2 Not Detected Normal Not Detected [facility] Comment on above: Result Comment: (NOT E) This test was developed and its performance characteristics determined by [employer]. This test has not been FDA cleared [...] is terminated or revoked sooner. Performed At: [employer] [facility] [address] [facility] [place] [id number] Laurent Pollock MD Ph:[phone] Performed By: #### A COV #### [facility] [address] [place] [address] Rn Hyperbaric: Philippe Pimentel MD Encounters Encounter Date Encounter Type Care Provider Facility Start: 01-24-2024 End: 01-24-2024 ambulatory Arabella Duong Facility:[facility] Start: 01-24-2024 End: 01-24-2024 ambulatory MD Arabella Duong Work Phone: [facility] Work Phone: Start: 01-24-2024 End: 01-24-2024 Departed Referred MD Arabella Duong Work Phone: [facility] Start: 01-23-2024 End: 01-23-2024 ambulatory BECKI SHIELDS Not Available Start: 12-26-2023 End: 12-26-2023 ambulatory JESSICA ALFARO Not Available Start: 08-03-2023 End: 08-04-2023 ambulatory ARABELLA DUONG Facility:[facility] Start: 01-31-2020 End: 02-01-2020 Patient encounter procedure RAHUL CAIN [facility] Start: 01-31-2020 End: 01-31-2020 Subsequent hospital visit [...] Influenza vaccination Flu vacc ine (Season Ended) [place], [place] Start: 2001 Screening for malign ant neoplasm of cervix Cervical cancer screen [place], [place] Start: 1999 DTaP/Tdap/Td vaccine (1 - Tdap) DTaP/Tdap/Td vaccine (1 - Tdap) [place], [place] Start: 1995 HIV screening HIV screen [place], [place] Start: 1981 Varicella vaccine (1 of 2 - 2-dose childhood series) Varicella vaccine (1 of 2 - 2-dose childhood series) [place] End: 01-31-2020 COVID-19 Ambulatory COVID-19 Ambulatory Lab Routine Fatigue, unspecified type Recurrent acute suppurative otitis media of right ear with spontaneous rupture of tympanic membrane Decreased hearing of both ears 1 Occurrences starting 01/31/2020 until 01/31/2020 [place] Comment on above: 1 Occurrences starti ng 01/31/2020 until 01/31/2020 COVID-19 Ambulatory COVID-19 Amb ulatory Lab Routine Fatigue, unspecified type Recurrent acute suppurative otitis media of right ear with spontaneous rupture of tympanic membrane Decreased hearing of both ears 01/31/2020 6:43 PM EDT [place] Payers Date Payer Category Payer Self-pay 2022 Private Health Insurance [id number] 2019 Unknown [employer] [address] xxxxxxxxxxxx 2019-Present [phone] [address] [place] [address] xxxxxxxxxxxx [id number] 2019 Unknown [id number] 1980 Unknown [id number] 1980 Unknown [id number] 1980 Unknown [id number] Social History Date Type Detail Facility Start: 01-31-2020 Tobacco [place] Sex Assigned At Not on file [place] Start: 1980 Sex Assigned At Female [facility] Evaluation note Note Date & Type Note Facility Evaluation note No assessment information availa [facility] Work Phone: Assessments Diagnosis Fatigue, unspecified type Recurrent acute suppurative otitis media of right ear with spontaneous rupture of tympanic membrane Decreased hearing of both ears Advance Directives No Advanced Directives Records FoundDocuments on File Type Date Recorded Patient Med Asst Expl anation Advance Directives and 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 DATE CREATED AUTHOR AUTHOR'S ORGANIZ ATION 08/10/2023 [facility] DATE CREATED AUTHOR AUTHOR'S ORGANIZ ATION 01/24/2024 [facility] EPIC DATE CREATED AUTHOR AUTHOR'S ORGANIZ ATION 01/25/2024 [facility] Care Teams (unrecognized sec [...] BE BASED ON THE PRIMARY CLINICAL RECORDS. [facility] [employer] [facility]. provides no warranty or guarantee of the accuracy or completeness of information in this document.
[2024-02-17 06:20] LABS: Basophils Absolute Auto 0.1 10^3/uL (0.0-0.1); Basophils Percent Auto 0.7 % (0.2-2.0); Eosinophils Absolute Auto 0.1 10^3/uL (0.0-0.7); Eosinophils Percent Auto 1.3 % (0.9-7.0); Hematocrit 37.7 % (36.0-48.0); Hemoglobin 12.5 g/dL (12.0-16.0); Immature Granulocytes Abs Auto 0.05 10^3/uL (0.00-0.03); Immature Granulocytes Pct Auto 0.6 % (0.0-0.5); Lymphocytes Absolute Auto 2.7 10^3/uL (1.2-3.8); Lymphocytes Percent Auto 30.3 % (20.5-60.0); Mean Corpuscular HGB Conc 33.2 g/dL (29.9-35.2); Mean Corpuscular Volume 90.4 fL (81.0-99.0); Mean Platelet Volume 9.6 fL (9.5-13.5); Monocytes Absolute Auto 0.8 10^3/uL (0.3-0.8); Monocytes Percent Auto 9.2 % (1.7-12.0); Neutrophils Absolute Auto 5.1 10^3/uL (1.4-6.5); Neutrophils Percent Auto 57.9 % (43.0-75.0); Platelet Count 323 10^3/uL (150-450); Red Blood Count 4.17 10^6/uL (4.20-5.40); Red Cell Distribution Width 12.7 % (11.0-15.0); White Blood Count 8.8 10^3/uL (4.0-11.0)
[2024-02-17 06:39] LABS: HCG Quantitative <1 mIU/mL
[2024-02-17] MEDS: LACTATED RINGER'S SOLUTION 1,000 ML 50 ML IV (06:57)
--- NOTE | 2024-02-17 08:48 | P.ON_ITS ---
Brief Operative Note Date of procedure: 02/17/24 Pre-op diagnosis general: menorrhagia, dysmenorrhea, desires permanent sterili zation Post-op diagnosis: same as pre-op Procedure: NAME OF PROCEDURE: robotic assisted Laparoscopic bilateral salpingectomy, with Francheska endometrial ablation with hysteroscopy PROCEDURE: The patient was taken back to the OR where she was prepped and draped in the normal sterile fashion after being placed in the dorsal lithotomy position, after being placed under general anesthesia without difficulty. a weighted speculum was then placed into the vagina. Pap and endometrial bx were performed without difficultyThe anterior lip was grasped with a single tooth tenaculum. The patient was then sounded to approximatley 9cm. The patient was gently sounded using Hegar dilators and the hysteroscope was passed through the cervix into the uterus where both ostia were seen. No gross evidence of polyps, fibroids or malignancy. The cervical length was noted to be 4cm. The Francheska ablation apparatus was set to approximately 5cm in length. This was placed in through the cervix and into the uterus. After the seal was tested, at that time the total ablation of 120 seconds was performed with the Francheska without difficulty. All instruments were removed from the vagina. A wet sponge stick was placed into the patient's vagina. Attention was then turned to the patient's abdomen, where a scalpel was used to make a small infraumbilical incision. The S retractors were then used to dissect the underlying layers until the fascia could be seen. The fascia was then grasped with Steve clamps and tented up. A knife was then used to make a small incision to the fascia. The muscle was identified, at that time two sutures of #0 Vicryl on a GI needlewas then used and placed through the fascia. The peritoneum was then identified and entered bluntly. The 10-4 Geo was then placed into the patient's abdomen. This was confirmed with direct visualization of the bowel, using the laparoscope. The patient's abdomen was then insufflated using approximately 4 liters of CO2 gas. Survey of the patient's abdomen demonstrated normal appearing ovaries, uterus and tubes. A second and third lateral robotic ports, which was 8mm in size, was then placed laterally after incision was made in the skin under direct visualization. the robotic arms were engaged. The patient's tube on the patient's right side was identified. The tube was then tented up using a grasper. The ligasure was used to transect and coagulate the mesosalpingx from the fimbriated end to the insertion at the uterus, the tube w as amputated and removed in its entirety.? Excellent hemostasis was noted. ?This was performed on the contralateral sideas well. The lateral ports were then moved under direct visualization with excellent hemostasis. The abdomen was deinsufflated. All instruments were removed from the patient's abdomen. The fascia was closed using the #0 Vicryl on GI needle. The skin was closed using 4- 0 Vicryl subcuticularly. All instruments were removed from the patient's vagina as well. The patient was taken out of the dorsal lithotomy position and placed in the supine position and taken to recovery in stable condition. Sponge, lap and needle counts were correct x2. ??? Anesthesia: JAYMIE Surgeon: Oracio Shields [employer] Developer: Smitha Yousif Estimated blood loss (mL): 5 Pathology: other (tubes) Condition: stable Disposition: PACU Urinary Catheter Management Urinary Catheter Management Urethral: Cath placed during this visit: no
--- NOTE | 2024-02-17 10:54 | PC.NURSE ---
1040: pt voids without difficulty. clear,yellow
== END 2024-02-17 10:56 | disposition home or self-care (01) ==
PROVIDERS: PCP Family Medicine; Visit Provider Obstetrics & Gynecology
PROC: (CPT 840; principal; 2024-02-17 07:30)
PROC: (CPT 840; 2024-02-17 07:30)
DX: Z30.2 Encounter for sterilization (principal); N92.0 Excessive and frequent menstruation with regular cycle; N93.9 Abnormal uterine and vaginal bleeding, unspecified; R10.2 Pelvic and perineal pain; Z87.442 Personal history of urinary calculi; Z87.891 Personal history of nicotine dependence
CPT/HCPCS: 58563; 58661; 36415; 84702; 85025; 88302; J1094; J2704